=== PATIENT | female | born 1960 | race Caucasian/White ===

== ENCOUNTER 2020-01-04 07:22 | Emergency (ER) | payer OTHER ==
[~2020-01-04] VITALS: Ht 157.5 cm; Wt 93.0 kg
[2020-01-04] MEDS ORDERED: MEDROLPACK PO (08:25)
[2020-01-04] MEDS ORDERED: NORFLEX100MG PO (08:25)
[2020-01-04] MEDS ORDERED: DICLOFENAC SODI75 MG PO (08:25)
== END 2020-01-04 08:55 | disposition home or self-care (01) ==
LOC: ER 07:22
DX: M54.5 Low back pain (principal); M79.662 Pain in left lower leg

== ENCOUNTER 2020-05-14 11:24 | Emergency (ER) | payer OTHER ==
[~2020-05-14] VITALS: Ht 157.5 cm; Wt 101.2 kg
[~2020-05-14 11:24] MED LIST: DICLOFENAC SODI75 MG PO; MEDROLPACK PO; NORFLEX100MG PO
== END 2020-05-14 18:39 | disposition home or self-care (01) ==
LOC: ER 11:24 → EDBD 11:56 → ER 18:39
DX: K52.9 Noninfective gastroenteritis and colitis, unspecified (principal)

== ENCOUNTER 2022-03-29 06:40 | Emergency (ER) | payer OTHER ==
[~2022-03-29] VITALS: Ht 157.5 cm; Wt 90.7 kg
[2022-03-29] MEDS ORDERED: CIPRO500 MG PO (09:12)
== END 2022-03-29 09:41 | disposition home or self-care (01) ==
LOC: ER 06:40
DX: L02.412 Cutaneous abscess of left axilla (principal)

== ENCOUNTER 2022-04-28 10:14 | Outpatient (CLI) | payer OTHER ==
[~2022-04-28 10:14] MED LIST changes: +CIPRO500 MG PO
== END 2022-04-28 10:22 | disposition home or self-care (01) ==
LOC: MRI 10:14
DX: M54.59 Other low back pain (principal); Z12.31 Encounter for screening mammogram for malignant neoplasm of breast
CPT/HCPCS: 72148

== ENCOUNTER → 2022-05-08 | Outpatient (CLI) | payer OTHER | END | disposition home or self-care (01) | LOC: NUCLEAR 13:15 | PROVIDERS: ATTEND Family Medicine Geriatric Medicine | DX: M81.0 Age-related osteoporosis without current pathological fracture (principal) ==

== ENCOUNTER 2022-09-12 08:04 | Emergency (ER) | payer OTHER ==
[~2022-09-12] VITALS: Ht 157.5 cm; Wt 90.7 kg
== END 2022-09-12 17:41 | disposition home or self-care (01) ==
LOC: ER 08:04
DX: R10.32 Left lower quadrant pain (principal); K52.9 Noninfective gastroenteritis and colitis, unspecified; Z20.822 Contact with and (suspected) exposure to COVID-19; N28.1 Cyst of kidney, acquired; D73.4 Cyst of spleen

== ENCOUNTER 2022-11-01 11:10 | Outpatient (CLI) | payer OTHER | END 2022-11-01 11:13 | disposition home or self-care (01) | LOC: SONOGRAMA 11:10 | PROVIDERS: ATTEND Family Medicine Geriatric Medicine | DX: N63.20 Unspecified lump in the left breast, unspecified quadrant (principal); R92.2 Inconclusive mammogram ==

== ENCOUNTER → 2023-05-28 10:06 | Outpatient (CLI) | payer OTHER ==
[2023-05-28 11:10] LABS: HEMATOCRIT 42.4 % (36.0-45.00); HEMOGLOBIN 14.2 g/dL (12.0-15.00); MEAN CELL VOLUME 85.2 fL (80.00-100.00); MEAN CORPUSCULAR HEMOGLOBIN 28.5 pg (27.00-32.0); MEAN CORPUSCULAR HGB CONC 33.4 g/dl (32.0-36.0); PLATELET COUNT 229 K/uL (150-450); RED BLOOD COUNT 4.98 M/uL (4.00-6.00); RED CELL DISTRIBUTION WIDTH 14.6 % (11.5-14.5)
[2023-05-28 11:17] LABS: URINE APPEARANCE Clear; URINE BILIRRUBIN Negative (NEGATIVE); URINE BLOOD Negative; URINE COLOR Yellow; URINE GLUCOSE Negative (NEGATIVE); URINE LEUKOCYTE Negative; URINE NITRATE Negative; URINE PROTEIN Negative (NEGATIVE); URINE UROBILINOGEN 0.2 E.U./dl
[2023-05-28 11:22] LABS: URINE EPITHELIAL CELLS 30.4 uL (0.0-38.8); URINE RBC 23.8 uL (0.0-20.8); URINE WBC 9.1 uL (0.0-23.2)
[2023-05-28 11:31] LABS: ALBUMIN 4.1 gm/dL (3.4-5.0); BILIRUBIN TOTAL 0.41 mg/dL (0.3-1.2); CALCIUM 9.8 mg/dL (8.5-10.1); CREATININE SERUM 0.66 mg/dL (0.55-1.02); GFR 89.88; GLOBULINA 3.4 G/DL (2.4-3.5); POTASSIUM 4.36 mEq/L (3.5-5.1); TOTAL PROTEIN 7.5 gm/dL (6.4-8.2); TSH 0.553 uIU/mL (0.358-3.74)
[2023-05-28 11:51] LABS: FOLIC ACID 13.12 ng/ml (4.78-20); VITAMIN D3 25 HYDROXY 46.82 ng/ml (30-120)
== END | disposition home or self-care (01) ==
LOC: LAB 10:06
PROVIDERS: ATTEND Family Medicine Geriatric Medicine
DX: I10 Essential (primary) hypertension (principal); E03.9 Hypothyroidism, unspecified; E78.5 Hyperlipidemia, unspecified; N39.0 Urinary tract infection, site not specified; E11.9 Type 2 diabetes mellitus without complications; E03.8 Other specified hypothyroidism

== ENCOUNTER 2023-12-06 10:12 | Outpatient (CLI) | payer OTHER | END 2023-12-06 10:37 | disposition home or self-care (01) | LOC: RAD 10:12 | PROVIDERS: ATTEND Family Medicine Geriatric Medicine | DX: M25.562 Pain in left knee (principal); M25.561 Pain in right knee ==

== ENCOUNTER → 2024-06-21 | Emergency (ER) | payer OTHER ==
[~2024-06-21] VITALS: Ht 157.5 cm; Wt 86.2 kg
[~2024-06-21] MED LIST changes: +KETOROLAC TROMETHAMINE 60 MG VIAL IM ONE; +LOSARTAN-HCTZ1 EAC1 PO; +ROSUVASTATIN CA20 MG PO
[2024-06-21 08:25] VITALS: BP 141/85; O2SAT 100
[2024-06-21 09:53] LABS: HEMATOCRIT 40.8 % (36.0-45.00); HEMOGLOBIN 13.8 g/dL (12.0-15.00); MEAN CELL VOLUME 85.3 fL (80.00-100.00); MEAN CORPUSCULAR HEMOGLOBIN 28.9 pg (27.00-32.0); MEAN CORPUSCULAR HGB CONC 33.9 g/dl (32.0-36.0); PLATELET COUNT 237 K/uL (150-450); RED BLOOD COUNT 4.79 M/uL (4.00-6.00); RED CELL DISTRIBUTION WIDTH 14.2 % (11.5-14.5)
[2024-06-21 10:19] LABS: CALCIUM 9.7 mg/dL (8.5-10.1); CREATININE SERUM 0.78 mg/dL (0.55-1.02); GFR 73.89; POTASSIUM 3.88 mEq/L (3.5-5.1)
== END | disposition home or self-care (01) ==
LOC: ER 08:21
PROVIDERS: General Practice
DX: R07.81 Pleurodynia (principal); I10 Essential (primary) hypertension; E78.00 Pure hypercholesterolemia, unspecified